=== PATIENT | male | born 1995 | race Caucasian/White ===

== ENCOUNTER 2018-06-04 13:54 | Outpatient (CLI) | payer BC ==
--- NOTE | 2018-06-04 15:19 | ULT ---
LEFT AXILLARY ULTRASOUND: HISTORY: Axillary adenopathy. TECHNIQUE: Multiplanar, dennison scale, and color Doppler images were obtained in a left axillary ultrasound. FINDINGS: There is an enlarged lymph node in the left axilla measuring 3.4 cm in greatest dimension. There is only 1 solitary enlarged lymph node. IMPRESSION: Large left axillary lymph node. The cause for this enlargement could be infectious or malignant caus e. Correlate with history and physical examination. POS: [facility]
== END 2018-06-04 13:55 | disposition home or self-care (01) ==
LOC: BICULT 13:54
PROVIDERS: ATTEND Physician Assistant
DX: R59.0 Localized enlarged lymph nodes (principal)
CPT/HCPCS: 76999